=== PATIENT | female | born 1965 | race Caucasian/White ===

== ENCOUNTER 2018-09-12 10:24 | Outpatient (RCR) | payer BC, SELFPAY ==
[2018-09-12 11:21] VITALS: BP 146/80; PULSE 91; TEMP 36; BMI 21.9
--- NOTE | 2018-09-12 12:01 | WC ---
Pt did not bring a medication list. manager strategy & account and Dr Spencer updated. Will request list from PCP.
--- NOTE | 2018-09-12 12:20 | HP.PCM_ITS ---
(1) Ulcer of right foot with fat layer exposed Status: Acute Current Visit: Yes Code(s): L97.512 - Non-pressure chronic ulcer of other part of right foot with fat layer exposed (2) Chronic ulcer of left foot with fat layer exposed Status: Chronic Current Visit: Yes Code(s): L97.522 - Non-pressure chronic ulcer of other part of left foot with fat layer exposed (3) Type 2 diabetes mellitus without complications Status: Acute Current Visit: Yes Code(s): E11.9 - Type 2 diabetes mellitus without complications (4) Chronic ulcer of right great toe with fat layer exposed Status: Chronic Current Visit: Yes Code(s): L97.512 - Non-pressure chronic ulcer of other part of right foot with fat layer exposed (5) Pain in right foot Status: Acute Current Visit: Yes Code(s): M79.671 - Pain in right foot (6) Pain in left foot Status: Acute Current Visit: Yes Code(s): M79.672 - Pain in left foot History of Present Illness Date of Service: 09/12/18 Chief Complaint: ulcer right great toe, right heel, and left heel. History of Wound: This 53-year-old diabetic female with other comorbidities was consulted to the wound healing center for ulcers to each heel as well as the right hallux. The patient is somewhat hard to understand and has scattered thoughts so gaining a history was somewhat difficult. She relates that she was in a drug-induced coma approximately 3 months ago, and when she woke up she had ulcers to each heel and her right hallux. She said she had been receiving dressing changes by her long-term facility that she was discharged to. She relates they have been doing dressing changes most recently with Mesalt. She currently denies noticing any purulence or drainage to the areas or extending or surrounding redness. Today she denies any feelings of nausea, vomiting, fever, chills. Past Medical History Past Medical History: Chronic Problems Chronic ulcer of left foot with fat layer exposed (Chronic) Chronic ulcer of right great toe with fat layer exposed (Chronic) Allergies/Adverse Reactions: Allergies tuna Allergy (Uncoded 09/12/18 12:00) Unknown Smoking Status: Never smoker Review of Systems Constitutional: Denies: Chills, Fever, Weight Change Cardiovascular: Denies: Chest Pain, Palpitations Respiratory: Denies: Cough, Shortness of Breath Gastrointestinal: Denies: Diarrhea, Nausea, Vomiting Skin: Reports: - - Ulcers to bilateral feet - Physical Exam Vital Signs Temp Pulse BP 96.8 F L 91 146/80 H 09/12/18 11:21 09/12/18 11:21 09/12/18 11:21 General: Alert, Oriented x3, Cooperative, No apparent distress Extremities: No cyanosis, Capillary Refill Less than 3 Seconds, No Calf Tenderness - Negative Subha and Acosta signs bilateral, Diminished Peripheral Pulses - DP and PT pulses faintly palpable bilateral, Edema - Very mild lower extremity Skin: Ulcer/ Wound - Ulcers to right hallux, right heel, and left heel with fat layer exposed. Measurements noted below. The bases of all of these are noted to be a mixture of devitalized subcutaneous tissue, adherent slough, fibrotic tissue, biofilm. Most fibrotic appearing ulcer is the right heel. There is no purulence, no malodor, no surrounding or extending cellulitis, no probing to bone, no tracking, and no undermining to any of the ulcer sites at this time. Wound Measurements and Assessment WC - Nurse 1 - General Ulcer Measurement Start: 09/12/18 11:21 Freq: Status: Active Protocol: Activity Type Activity Date Activity User E-Sign Co-Sign Detail Recorded Client Recorded Date Recorded By Document 09/12/18 11:21 [id number] 09/12/18 11:47 09/12/18 11:21 Wound Center Nurse 1 [Ulcer Assessment] #3 Left heel -Combined with other wound No -Current Size (cm) - Length 0.6 -Current Size (cm) - Width 1.1 -Current Size (cm) - Depth 0.2 -Total Square Cm 0.66 -Date of Last Picture (Recall this 09/12/18 field) -Photo Taken Yes -Epithelialization None Present -Tunneling No -Undermining/Tunneling No -Circular Undermining No -Exudate Amt Medium -Exudate Type Serosanguineous -Wound Margin Distinct, Outline Attached -Granulation Amt None Present (0 %) -Granulation Quality N/A -Slough/Fibrin Yes -Necrosis Amt Large (67-100%) -Necrotic Tissue Type Adherent Slough -Structure Exposed None/Limited to Skin Breakdown -Texture (Christin-wound Skin Appearance) Assessed, Friable -Moisture (Christin-wound Skin Appearance Assessed, ) Maceration -Color (Christin-wound Skin Appearance) Assessed,Palor -Temperature (Christin-wound Skin No Abnormality Appearance) (Pt Warm) -Tenderness on Palpation (Christin-wound Yes Skin Appearance) -Foul Odor after Cleansing No #2 Right heel -Combined with other wound No -Current Size (cm) - Length 2.7 -Current Size (cm) - Width 2.4 -Current Size (cm) - Depth 0.2 -Total Square Cm 6.48 -Date of Last Picture (Recall this 09/12/18 field) -Photo Taken Yes -Epithelialization None Present -Tunneling No -Undermining/Tunneling No -Circular Undermining No -Exudate Amt Medium -Exudate Type Serosanguineous -Wound Margin Distinct, Outline Attached -Granulation Amt None Present (0 %) -Granulation Quality N/A -Slough/Fibrin Yes -Necrosis Amt None Present (0 %) -Necrotic Tissue Type Adherent Slough -Structure Exposed None/Limited to Skin Breakdown -Texture (Christin-wound Skin Appearance) Assessed, Friable -Moisture (Christin-wound Skin Appearance Assessed, ) Maceration -Color (Christin-wound Skin Appearance) Assessed,Palor -Temperature (Christin-wound Skin No Abnormality Appearance) (Pt Warm) -Tenderness on Palpation (Christin-wound Yes Skin Appearance) -Foul Odor after Cleansing No -Anesthetic Used 5% Lidocaine Gel #1 Right great toe -Combined with other wound No -Current Size (cm) - Length 2.4 -Current Size (cm) - Width 2.5 -Current Size (cm) - Depth 0.1 -Total Square Cm 6.00 -Date of Last Picture (Recall this 09/12/18 field) -Photo Taken Yes -Epithelialization None Present -Undermining/Tunneling No -Circular Undermining No -Exudate Amt Medium -Exudate Type Serosanguineous -Wound Margin Distinct, Outline Attached -Granulation Amt None Present (0 %) -Granulation Quality N/A -Slough/Fibrin Yes -Necrosis Amt None Present (0 %) -Necrotic Tissue Type Adherent Slough -Structure Exposed None/Limited to Skin Breakdown -Texture (Christin-wound Skin Appearance) Assessed, Localized Edema -Moisture (Christin-wound Skin Appearance Assessed, ) Maceration -Color (Christin-wound Skin Appearance) Assessed,Palor -Temperature (Christin-wound Skin No Abnormality Appearance) (Pt Warm) -Tenderness on Palpation (Christin-wound Yes Skin Appearance) -Foul Odor after Cleansing No -Anesthetic Used 5% Lidocaine Gel [Edema Assessment] -Right Calf (cm) 28.2 -Right Ankle (cm) 17.8 -Left Calf (cm) 31.5 -Left Ankle (cm) 19 WC - Nurse 2 - General Ulcer CM Notes Start: 09/12/18 11:21 Freq: Status: Active Protocol: Activity Type Activity Date Activity User E-Sign Co-Sign Detail Recorded Client Recorded Date Recorded By Document 09/12/18 12:01 [email or web address] [id number] 09/12/18 12:16 AN 09/12/18 12:01 Wound Center Nurse 2 [Procedure/Treatment] #3 Left heel -Time 12:09 -Correct Patient Yes -Correct Side, Site, Position Yes -Correct Procedure Yes -Procedure Performed Yes -Type of Procedure Debridement -Clinical Debridement Subcutaneous -Post Debridement Size (cm) - Length 0.5 -Post Debridement Size (cm) - Width 1.2 -Post Debridement Size (cm) - Depth 0.2 -Total Square Cm 0.60 -Wound/Ulcer Outcome Not Healed -Ulcer Cleansing Rinsed/ Irrigated with Saline -Foul Odor after Cleansing No -Bioengineered Tissue No -Bleeding Controlled with Pressure -Treatment Response Procedure Tolerated Well #2 Right heel -Time 12:10 -Correct Patient Yes -Correct Side, Site, Position Yes -Correct Procedure Yes -Procedure Performed Yes -Type of Procedure Debridement -Clinical Debridement Subcutaneous -Post Debridement Size (cm) - Length 2.4 -Post Debridement Size (cm) - Width 2.4 -Post Debridement Size (cm) - Depth 0.4 -Total Square Cm 5.76 -Wound/Ulcer Outcome Not Healed -Ulcer Cleansing Rinsed/ Irrigated with Saline -Foul Odor after Cleansing No -Bioengineered Tissue No -Bleeding Controlled with Pressure -Offloading No -Treatment Response Procedure Tolerated Well #1 Right great toe -Time 12:10 -Correct Patient Yes -Correct Side, Site, Position Yes -Correct Procedure Yes -Procedure Performed Yes -Type of Procedure Debridement -Clinical Debridement Subcutaneous -Post Debridement Size (cm) - Length 2.5 -Post Debridement Size (cm) - Width 2.5 -Post Debridement Size (cm) - Depth 0.2 -Total Square Cm 6.25 -Wound/Ulcer Outcome Not Healed -Ulcer Cleansing Rinsed/ Irrigated with Saline -Foul Odor after Cleansing No -Bioengineered Tissue No -Bleeding Controlled with Pressure -Offloading No -Treatment Response Procedure Tolerated Well [See Physician Procedure note for Specifics] Pain Scale: 0-10 Numeric [Pain] -Is Patient Pain Free? Yes Musculoskeletal: Tenderness - With manipulation of ulcer sites Neurological: Sensory exam intact to light touch and pain Psych/Mental Status: Normal Affect, Appropriate Debridement Note Post-Debridement Measurements/Treatment WC - Nurse 2 - General Ulcer CM Notes Start: 09/12/18 11:21 Freq: Status: Active Protocol: Activity Type Activity Date Activity User E-Sign Co-Sign Detail Recorded Client Recorded Date Recorded By Document 09/12/18 12:01 AN [id number] 09/12/18 12:16 AN 09/12/18 12:01 Wound Center Nurse 2 #3 Left heel -Time 12:09 -Correct Patient Yes -Correct Side, Site, Position Yes -Correct Procedure Yes -Procedure Performed Yes -Type of Procedure Debridement -Clinical Debridement Subcutaneous -Post Debridement Size (cm) - Length 0.5 -Post Debridement Size (cm) - Width 1.2 -Post Debridement Size (cm) - Depth 0.2 -Total Square Cm 0.60 -Wound/Ulcer Outcome Not Healed -Ulcer Cleansing Rinsed/ Irrigated with Saline -Foul Odor after Cleansing No -Bioengineered Tissue No -Bleeding Controlled with Pressure -Treatment Response Procedure Tolerated Well #2 Right heel -Time 12:10 -Correct Patient Yes -Correct Side, Site, Position Yes -Correct Procedure Yes -Procedure Performed Yes -Type of Procedure Debridement -Clinical Debridement Subcutaneous -Post Debridement Size (cm) - Length 2.4 -Post Debridement Size (cm) - Width 2.4 -Post Debridement Size (cm) - Depth 0.4 -Total Square Cm 5.76 -Wound/Ulcer Outcome Not Healed -Ulcer Cleansing Rinsed/ Irrigated with Saline -Foul Odor after Cleansing No -Bioengineered Tissue No -Bleeding Controlled with Pressure -Offloading No -Treatment Response Procedure Tolerated Well #1 Right great toe -Time 12:10 -Correct Patient Yes -Correct Side, Site, Position Yes -Correct Procedure Yes -Procedure Performed Yes -Type of Procedure Debridement -Clinical Debridement Subcutaneous -Post Debridement Size (cm) - Length 2.5 -Post Debridement Size (cm) - Width 2.5 -Post Debridement Size (cm) - Depth 0.2 -Total Square Cm 6.25 -Wound/Ulcer Outcome Not Healed -Ulcer Cleansing Rinsed/ Irrigated with Saline -Foul Odor after Cleansing No -Bioengineered Tissue No -Bleeding Controlled with Pressure -Offloading No -Treatment Response Procedure Tolerated Well Pain Scale: 0-10 Numeric Is Patient Pain Free? Yes Wound debrided: Right posterior heel Laterality: Right Type of Debridement: Selective debridement Anesthesia Used: 5% Lidocaine Gel Depth: in the subcutaneous layer Percentage of wound debrided: 100 Instrument Used: 7mm curette Tissue Removed: Devitalized subcutaneous tissue, fibrotic tissue, adherent slough, biofilm Severity: Fat Layer Exposed Amount of bleeding with debridement: Mild Bleeding Controlled with: Pressure Patient tolerated procedure well - Additional Wound Wound debrided: Left posterior heel Laterality: Left Type of Debridement: Selective debridement Anesthesia Used: 5% Lidocaine Gel Depth: in the subcutaneous layer Percentage of wound debrided: 100 Instrument Used: 7mm curette Tissue Removed: Devitalized subcutaneous tissue, fibrotic tissue, adherent slough, biofilm - Additional Wound Wound debrided: Right hallux Laterality: Right Type of Debridement: Selective debridement Anesthesia Used: 5% Lidocaine Gel Depth: in the subcutaneous layer Percentage of wound debrided: 100 Instrument Used: 7mm curette Tissue Removed: Devitalized subcutaneous tissue, fibrotic tissue, adherent slough, biofilm Severity: Fat Layer Exposed Amount of bleeding with debridement: Mild Bleeding Controlled with: Pressure Patient tolerated procedure: Patient tolerated procedure well Assessment/Plan Active Problems Ulcer of right foot with fat layer exposed (Acute) Chronic ulcer of left foot with fat layer exposed (Chronic) Type 2 diabetes mellitus without complications (Acute) Chronic ulcer of right great toe with fat layer exposed (Chronic) Pain in right foot (Acute) Pain in left foot (Acute) Assessment: As noted above Plan: This patient was seen as a courtesy visit after missing her appointment 2 days ago. Initial patient examination and evaluation was performed. A very mild selective debridement was performed as noted in the clinical panel. Once complete, each of the ulcer sites was dressed with Santyl to the base followed by dry sterile dressing. The importance of keeping each of the ulcer sites offloaded at all times was stressed in great detail with the patient today. We discussed proper footwear that will completely offload the site if the patient has to be up and moving. We also discussed the importance of having her heels and toes completely offloaded and floated over the edges of pillows so nothing is touching them but air. Currently there are no nuchal signs of local inf ection so no wound cultures or antibiotics were prescribed. LEAS and venous duplex exams ordered for this patient and we will continue to monitor for these results. A prescription for Santyl was dispensed to the patient today. I recommend nutritional supplementation with a high protein diet in order to help optimize ulcer healing potential. The patient was educated on all signs and symptoms of local and systemic infection, and she was instructed to go to the emergency room immediately should she notice any of these. All questions were answered to the patient's satisfaction. She will follow back up in clinic with a different provider next week with whom she was originally scheduled with. She is to follow back up sooner if needed before then.
== END 2018-09-18 23:59 ==
LOC: WC 10:24
PROVIDERS: Family Provider Preventive Medicine Occupational Medicine; PCP Preventive Medicine Occupational Medicine; Visit Provider Nurse Practitioner Family
DX: E11.621 Type 2 diabetes mellitus with foot ulcer (principal); L97.512 Non-pressure chronic ulcer of other part of right foot with fat layer exposed; L97.422 Non-pressure chronic ulcer of left heel and midfoot with fat layer exposed; L97.412 Non-pressure chronic ulcer of right heel and midfoot with fat layer exposed
CPT/HCPCS: 99202; G0463

== ENCOUNTER 2018-10-15 15:15 | Outpatient (RCR) | payer MEDICARE, MEDICAID, SELFPAY ==
[2018-09-19 01:16] VITALS: BP 146/80; PULSE 91; TEMP 36
[2018-09-19 10:22] VITALS: BP 156/97; PULSE 115; RESP 18; TEMP 36.2; BMI 21.9
--- NOTE | 2018-09-19 11:55 | PCM.WC.PN ---
(1) Ulcer of right foot with fat layer exposed Status: Acute Current Visit: No Code(s): L97.512 - Non-pressure chronic ulcer of other part of right foot with fat layer exposed (2) Chronic ulcer of left foot with fat layer exposed Status: Chronic Current Visit: No Code(s): L97.522 - Non-pressure chronic ulcer of other part of left foot with fat layer exposed (3) Type 2 diabetes mellitus without complications Status: Acute Current Visit: No Code(s): E11.9 - Type 2 diabetes mellitus without complications (4) Chronic ulcer of right great toe with fat layer exposed Status: Chronic Current Visit: No Code(s): L97.512 - Non-pressure chronic ulcer of other part of right foot with fat layer exposed (5) Pain in right foot Status: Acute Current Visit: No Code(s): M79.671 - Pain in right foot (6) Pain in left foot Status: Acute Current Visit: No Code(s): M79.672 - Pain in left foot Type of Wound Date of Service: 09/19/18 Chief Complaint: ulcer right great toe, right heel, and left heel. History of Wound: This 53-year-old diabetic female with other comorbidities was consulted to the wound healing center for ulcers to each heel as well as the right hallux. The patient is somewhat hard to understand and has scattered thoughts so gaining a history was somewhat difficult. She relates that she was in a drug-induced coma approximately 3 months ago, and when she woke up she had ulcers to each heel and her right hallux. She said she had been receiving dressing changes by her [facility] facility that she was discharged to. She relates they have been doing dressing changes most recently with Mesalt. She currently denies noticing any purulence or drainage to the areas or extending or surrounding redness. Today she denies any feelings of nausea, vomiting, fever, chills. Progress of Wound: Slight improvement in appearance of each ulcer site this week. - Physical Exam Vital Signs Temp Pulse Resp BP 97.1 F L 115 H 18 156/97 H 09/19/18 10:22 09/19/18 10:22 09/19/18 10:22 09/19/18 10:22 General: Alert, Oriented x3, Cooperative, No apparent distress Extremities: No cyanosis, Capillary Refill Less than 3 Seconds, No Calf Tenderness - Negative Subha and Acosta signs bilateral, Diminished Peripheral Pulses - DP pulses and PT pulses faintly palpable bilateral, Edema - Mild lower extremity edema Skin: Ulcer/ Wound - Ulcers to right hallux, right heel, and left heel with fat layer exposed. Measurements noted below. The bases of all of these are noted to be a mixture of devitalized subcutaneous tissue, adherent slough, fibrotic tissue, biofilm. Most fibrotic appearing ulcer is the right heel. There is no purulence, no malodor, no surrounding or extending cellulitis, no probing to bone, no tracking, and no undermining to any of the ulcer sites at this time. Wound Measurements and Assessment WC - Nurse 1 - General Ulcer Measurement Start: 09/19/18 10:22 Freq: Status: Active Protocol: Activity Type Activity Date Activity User E-Sign Co-Sign Detail Recorded Client Recorded Date Recorded By Document 09/19/18 10:22 [id number] 09/19/18 10:46 09/19/18 10:22 Wound Center Nurse 1 [Ulcer Assessment] #3 Left heel -Combined with other wound No -Current Size (cm) - Length 1 -Current Size (cm) - Width 0.5 -Current Size (cm) - Depth 0.2 -Total Square Cm 0.5 -Photo Taken No -Epithelialization None Present -Tunneling No -Undermining/Tunneling No -Circular Undermining No -Exudate Amt Small -Exudate Type Serosanguineous -Wound Margin Distinct, Outline Attached -Granulation Amt None Present (0 %) -Granulation Quality N/A -Slough/Fibrin Yes -Necrosis Amt Medium (34-66%) -Necrotic Tissue Type Adherent Slough -Structure Exposed None/Limited to Skin Breakdown -Texture (Christin-wound Skin Appearance) Assessed -Moisture (Christin-wound Skin Appearance Assessed, ) Maceration -Color (Christin-wound Skin Appearance) Assessed,Palor -Temperature (Christin-wound Skin No Abnormality Appearance) (Pt Warm) -Tenderness on Palpation (Christin-wound No Skin Appearance) -Foul Odor after Cleansing No -Anesthetic Used 5% Lidocaine Gel #2 Right heel -Combined with other wound No -Current Size (cm) - Length 3.4 -Current Size (cm) - Width 1.2 -Current Size (cm) - Depth 0.1 -Total Square Cm 4.08 -Photo Taken No -Epithelialization None Present -Tunneling No -Undermining/Tunneling No -Circular Undermining No -Exudate Amt Medium -Exudate Type Serosanguineous -Wound Margin Distinct, Outline Attached -Granulation Amt None Present (0 %) -Granulation Quality N/A -Slough/Fibrin Yes -Necrosis Amt Medium (34-66%) -Necrotic Tissue Type Adherent Slough -Structure Exposed None/Limited to Skin Breakdown -Texture (Christin-wound Skin Appearance) Assessed -Moisture (Christin-wound Skin Appearance Assessed, ) Maceration -Color (Christin-wound Skin Appearance) Palor -Temperature (Christin-wound Skin No Abnormality Appearance) (Pt Warm) -Tenderness on Palpation (Christin-wound No Skin Appearance) -Foul Odor after Cleansing No -Anesthetic Used 5% Lidocaine Gel #1 Right great toe -Combined with other wound No -Current Size (cm) - Length 1.9 -Current Size (cm) - Width 2.8 -Current Size (cm) - Depth 0.2 -Total Square Cm 5.32 -Photo Taken No -Epithelialization None Present -Tunneling No -Undermining/Tunneling No -Circular Undermining No -Exudate Amt Medium -Exudate Type Serosanguineous -Wound Margin Distinct, Outline Attached -Granulation Amt None Present (0 %) -Granulation Quality N/A -Slough/Fibrin Yes -Necrosis Amt Medium (34-66%) -Necrotic Tissue Type Adherent Slough -Structure Exposed None/Limited to Skin Breakdown -Texture (Christin-wound Skin Appearance) Assessed -Moisture (Christin-wound Skin Appearance Assessed, ) Maceration -Color (Christin-wound Skin Appearance) Assessed,Palor -Temperature (Christin-wound Skin No Abnormality Appearance) (Pt Warm) -Tenderness on Palpation (Christin-wound No Skin Appearance) -Foul Odor after Cleansing No -Anesthetic Used 5% Lidocaine Gel [Edema Assessment] -Lower Limb Edema Present No WC - Nurse 2 - General Ulcer CM Notes Start: 09/19/18 10:22 Freq: Status: Active Protocol: Activity Type Activity Date Activity User E-Sign Co-Sign Detail Recorded Client Recorded Date Recorded By Document 09/19/18 10:59 AN [id number] 09/19/18 11:02 AN 09/19/18 10:59 Wound Center Nurse 2 [Procedure/Treatment] #3 Left heel -Time 11:01 -Correct Patient Yes -Correct Side, Site, Position Yes -Correct Procedure Yes -Procedure Performed Yes -Type of Procedure Debridement -Clinical Debridement Selective -Post Debridement Size (cm) - Length 0.5 -Post Debridement Size (cm) - Width 1.1 -Post Debridement Size (cm) - Depth 0.2 -Total Square Cm 0.55 -Wound/Ulcer Outcome Not Healed -Bleeding Controlled with Pressure -Offloading No -Treatment Response Procedure Tolerated Well #2 Right heel -Time 11:01 -Correct Patient Yes -Correct Side, Site, Position Yes -Correct Procedure Yes -Procedure Performed Yes -Type of Procedure Debridement -Clinical Debridement Selective -Post Debridement Size (cm) - Length 2.2 -Post Debridement Size (cm) - Width 2.1 -Post Debridement Size (cm) - Depth 0.3 -Total Square Cm 4.62 -Wound/Ulcer Outcome Not Healed -Ulcer Cleansing Rinsed/ Irrigated with Saline -Foul Odor after Cleansing No -Bioengineered Tissue No -Bleeding Controlled with Pressure -Offloading No -Treatment Response Procedure Tolerated Well #1 Right great toe -Time 11:02 -Correct Patient Yes -Correct Side, Site, Position Yes -Correct Procedure Yes -Procedure Performed Yes -Type of Procedure Debridement -Clinical Debridement Selective -Post Debridement Size (cm) - Length 2.5 -Post Debridement Size (cm) - Width 2.5 -Post Debridement Size (cm) - Depth 0.2 -Total Square Cm 6.25 -Wound/Ulcer Outcome Not Healed -Ulcer Cleansing Rinsed/ Irrigated with Saline -Foul Odor after Cleansing No -Bioengineered Tissue No -Bleeding Controlled with Pressure -Offloading No -Treatment Response Procedure Tolerated Well [See Physician Procedure note for Specifics] Pain Scale: 0-10 Numeric [Pain] -Is Patient Pain Free? Yes Musculoskeletal: Tenderness - With manipulation of ulcer sites Neurological: Sensory exam intact to light touch and pain Psych/Mental Status: Normal Affect, Appropriate Debridement Note Post-Debridement Measurements/Treatment WC - Nurse 2 - General Ulcer CM Notes Start: 09/19/18 10:22 Freq: Status: Active Protocol: Activity Type Activity Date Activity User E-Sign Co-Sign Detail Recorded Client Recorded Date Recorded By Document 09/19/18 10:59 AN [id number] 09/19/18 11:02 AN 09/19/18 10:59 Wound Center Nurse 2 #3 Left heel -Time 11:01 -Correct Patient Yes -Correct Side, Site, Position Yes -Correct Procedure Yes -Procedure Performed Yes -Type of Procedure Debridement -Clinical Debridement Selective -Post Debridement Size (cm) - Length 0.5 -Post Debridement Size (cm) - Width 1.1 -Post Debridement Size (cm) - Depth 0.2 -Total Square Cm 0.55 -Wound/Ulcer Outcome Not Healed -Bleeding Controlled with Pressure -Offloading No -Treatment Response Procedure Tolerated Well #2 Right heel -Time 11:01 -Correct Patient Yes -Correct Side, Site, Position Yes -Correct Procedure Yes -Procedure Performed Yes -Type of Procedure Debridement -Clinical Debridement Selective -Post Debridement Size (cm) - Length 2.2 -Post Debridement Size (cm) - Width 2.1 -Post Debridement Size (cm) - Depth 0.3 -Total Square Cm 4.62 -Wound/Ulcer Outcome Not Healed -Ulcer Cleansing Rinsed/ Irrigated with Saline -Foul Odor after Cleansing No -Bioengineered Tissue No -Bleeding Controlled with Pressure -Offloading No -Treatment Response Procedure Tolerated Well #1 Right great toe -Time 11:02 -Correct Patient Yes -Correct Side, Site, Position Yes -Correct Procedure Yes -Procedure Performed Yes -Type of Procedure Debridement -Clinical Debridement Selective -Post Debridement Size (cm) - Length 2.5 -Post Debridement Size (cm) - Width 2.5 -Post Debridement Size (cm) - Depth 0.2 -Total Square Cm 6.25 -Wound/Ulcer Outcome Not Healed -Ulcer Cleansing Rinsed/ Irrigated with Saline -Foul Odor after Cleansing No -Bioengineered Tissue No -Bleeding Controlled with Pressure -Offloading No -Treatment Response Procedure Tolerated Well Pain Scale: 0-10 Numeric Is Patient Pain Free? Yes Wound debrided: Right posterior heel Laterality: Right Type of Debridement: Selective debridement Anesthesia Used: 5% Lidocaine Gel Depth: in the subcutaneous layer Percentage of wound debrided: 100 Instrument Used: 5mm curette Tissue Removed: Devitalized subcutaneous tissue, fibrotic tissue, adherent slough, biofilm Severity: Fat Layer Exposed Amount of bleeding with debridement: Mild Bleeding Controlled with: Pressure Patient tolerated procedure well - Additional Wound Wound debrided: Left posterior heel Laterality: Left Type of Debridement: Selective debridement Anesthesia Used: 5% Lidocaine Gel Depth: in the subcutaneous layer Percentage of wound debrided: 100 Instrument Used: 5mm curette Tissue Removed: Devitalized subcutaneous tissue, fibrotic tissue, adherent slough, biofilm Severity: Fat Layer Exposed Amount of bleeding with debridement: Mild Bleeding Controlled with: Pressure Patient tolerated procedure: Patient tolerated procedure well - Additional Wound Wound debrided: Right hallux Laterality: Right Type of Debridement: Selective debridement Anesthesia Used: 5% Lidocaine Gel Depth: in the subcutaneous layer Percentage of wound debrided: 100 Instrument Used: 5mm curette Tissue Removed: Devitalized subcutaneous tissue, fibrotic tissue, adherent slough, biofilm Severity: Fat Layer Exposed Amount of bleeding with debridement: Mild Bleeding Controlled with: Pressure Patient tolerated procedure: Patient tolerated procedure well Assessment/Plan Assessment: As noted above Plan: This patient was seen as a courtesy visit after missing her appointment on her initial visit and then having her provider on vacation this week. Patient was examined and evaluated again today. A very mild selective debridement was performed as noted in the clinical panel. Once complete, each of the ulcer sites were dressed with Santyl to the base followed by dry sterile dressing. She has been tolerating these dressing changes well each day. The importance of keeping each of the ulcer sites offloaded at all times was stressed in great detail with the patient today. We discussed proper footwear that will completely offload the site if the patient has to be up and moving. We also discussed the importance of having her heels and toes completely offloaded and floated over the edges of pillows so nothing is touching them but air again today. LEAS and venous duplex exams ordered for this patient and she will have them done this afternoon. We will continue to monitor for these results. I recommend nutritional supplementation with a high protein diet in order to help optimize ulcer healing potential. The patient was educated on all signs and symptoms of local and systemic infection, and she was instructed to go to the emergency room immediately should she notice any of these. All questions were answered to the patient's satisfaction. She will follow back up in clinic with a different provider next week. She is to follow back up sooner if needed before then.
[2018-10-01 15:25] VITALS: BP 141/87; PULSE 120; RESP 18; TEMP 536.2; TEMP 997.2; BMI 21.9
--- NOTE | 2018-10-01 17:11 | PCM.WC.PN ---
(1) Chronic ulcer of right great toe with fat layer exposed Status: Chronic Code(s): L97.512 - Non-pressure chronic ulcer of other part of right foot with fat layer exposed (2) Ulcer of right foot with fat layer exposed Status: Chronic Code(s): L97.512 - Non-pressure chronic ulcer of other part of right foot with fat layer exposed (3) Chronic ulcer of left foot with fat layer exposed Status: Chronic Code(s): L97.522 - Non-pressure chronic ulcer of other part of left foot with fat layer exposed (4) Type 2 diabetes mellitus Status: Chronic Code(s): E11.9 - Type 2 diabetes mellitus without complications Type of Wound Date of Service: 10/01/18 Chief Complaint: ulcer right great toe, right heel, and left heel. History of Wound: This 53-year-old diabetic female with other comorbidities was consulted to the wound healing center for ulcers to each heel as well as the right great toe. The patient is somewhat hard to understand and has scattered thoughts so gaining a history was somewhat difficult. She relates that she was in a drug-induced coma approximately 3 months ago, and when she woke up she had ulcers to each heel and her right great toe. She said she had been receiving dressing changes by her long term facility that she was discharged to. She relates they have been doing dressing changes most recently with [facility]. She currently denies noticing any purulence or drainage to the areas or extending or surrounding redness. Current wound care is Santyl daily. Today she denies any feelings of nausea, vomiting, fever, chills. Progress of Wound: Stable - Physical Exam Vital Signs Temp Pulse Resp BP 997.2 F H 120 H 18 141/87 H 10/01/18 15:25 10/01/18 15:25 10/01/18 15:25 10/01/18 15:25 General: Alert HEENT: Atraumatic Oral: Moist Mucosa Lungs: Normal air movement Cardiovascular: Regular Rhythm Extremities: Capillary Refill Less than 3 Seconds, Diminished Peripheral Pulses Skin: Ulcer/ Wound - Right great toe and bilateral heels. Wound Measurements and Assessment WC - Nurse 1 - General Ulcer Measurement Start: 09/19/18 10:22 Freq: Status: Active Protocol: Activity Type Activity Date Activity User E-Sign Co-Sign Detail Recorded Client Recorded Date Recorded By Document 10/01/18 15:25 DL [id number] 10/01/18 15:32 DL 10/01/18 15:25 Wound Center Nurse 1 [Ulcer Assessment] #3 Left heel -Current Size (cm) - Length 0.4 -Current Size (cm) - Width 0.6 -Current Size (cm) - Depth 0.2 -Total Square Cm 0.24 -Photo Taken No -Exudate Amt Small -Exudate Type Serosanguineous -Wound Margin Distinct, Outline Attached -Granulation Amt Medium (34-66%) -Granulation Quality Pale -Necrosis Amt Medium (34-66%) -Necrotic Tissue Type Adherent Slough -Structure Exposed N/A -Texture (Christin-wound Skin Appearance) Callus,Scarring -Moisture (Christin-wound Skin Appearance Dry/Scaly ) -Color (Christin-wound Skin Appearance) No Abnormality -Temperature (Christin-wound Skin No Abnormality Appearance) (Pt Warm) -Tenderness on Palpation (Christin-wound No Skin Appearance) -Ulcer Cleansing Rinsed/ Irrigated with Saline -Foul Odor after Cleansing No -Anesthetic Used 5% Lidocaine Gel #2 Right heel -Current Size (cm) - Length 1.8 -Current Size (cm) - Width 1.5 -Current Size (cm) - Depth 0.1 -Total Square Cm 2.70 -Photo Taken No -Exudate Amt Small -Exudate Type Serosanguineous -Wound Margin Distinct, Outline Attached -Granulation Amt Medium (34-66%) -Granulation Quality [place] -Necrosis Amt Medium (34-66%) -Necrotic Tissue Type Adherent Slough -Structure Exposed N/A -Texture (Christin-wound Skin Appearance) Callus,Scarring -Moisture (Christin-wound Skin Appearance Dry/Scaly ) -Color (Christin-wound Skin Appearance) No Abnormality -Temperature (Christin-wound Skin No Abnormality Appearance) (Pt Warm) -Tenderness on Palpation (Christin-wound No Skin Appearance) -Ulcer Cleansing Rinsed/ Irrigated with Saline -Foul Odor after Cleansing No -Anesthetic Used 5% Lidocaine Gel #1 Right great toe -Current Size (cm) - Length 0.6 -Current Size (cm) - Width 2.6 -Current Size (cm) - Depth 0.1 -Total Square Cm 1.56 -Photo Taken No -Exudate Amt Small -Exudate Type Serosanguineous -Wound Margin Distinct, Outline Attached -Granulation Amt Medium (34-66%) -Granulation Quality [place] -Necrosis Amt Medium (34-66%) -Necrotic Tissue Type Adherent Slough -Structure Exposed N/A -Texture (Christin-wound Skin Appearance) Scarring -Moisture (Chritsin-wound Skin Appearance Dry/Scaly ) -Color (Christin-wound Skin Appearance) No Abnormality -Temperature (Christin-wound Skin No Abnormality Appearance) (Pt Warm) -Tenderness on Palpation (Christin-wound No Skin Appearance) -Ulcer Cleansing Rinsed/ Irrigated with Saline -Foul Odor after Cleansing No -Anesthetic Used 5% Lidocaine Gel WC - Nurse 2 - General Ulcer CM Notes Start: 09/19/18 10:22 Freq: Status: Active Protocol: Activity Type Activity Date Activity User E-Sign Co-Sign Detail Recorded Client Recorded Date Recorded By Document 10/01/18 16:20 KAIA [id number] 10/01/18 16:27 KAIA 10/01/18 16:20 Wound Center Nurse 2 [Procedure/Treatment] #3 Left heel -Time 16:23 -Correct Patient Yes -Correct Side, Site, Position Yes -Correct Procedure Yes -Procedure Performed Yes -Type of Procedure Debridement -Clinical Debridement Subcutaneous -Post Debridement Size (cm) - Length 0.6 -Post Debridement Size (cm) - Width 0.9 -Post Debridement Size (cm) - Depth 0.4 -Total Square Cm 0.54 -Wound/Ulcer Outcome Not Healed -Ulcer Cleansing Rinsed/ Irrigated with Saline -Foul Odor after Cleansing No -Bioengineered Tissue No -Bleeding Controlled with Pressure -Offloading No -Treatment Response Procedure Tolerated Well #2 Right heel -Time 16:23 -Correct Patient Yes -Correct Side, Site, Position Yes -Correct Procedure Yes -Procedure Performed Yes -Type of Procedure Debridement -Clinical Debridement Subcutaneous -Post Debridement Size (cm) - Length 2.0 -Post Debridement Size (cm) - Width 1.7 -Post Debridement Size (cm) - Depth 0.3 -Total Square Cm 3.40 -Wound/Ulcer Outcome Not Healed -Ulcer Cleansing Rinsed/ Irrigated with Saline -Foul Odor after Cleansing No -Bioengineered Tissue No -Bleeding Controlled with Pressure -Offloading No -Treatment Response Procedure Tolerated Well #1 Right great toe -Time 16:20 -Correct Patient Yes -Correct Side, Site, Position Yes -Correct Procedure Yes -Procedure Performed Yes -Type of Procedure Debridement -Clinical Debridement Subcutaneous -Post Debridement Size (cm) - Length 2.7 -Post Debridement Size (cm) - Width 0.7 -Post Debridement Size (cm) - Depth 0.2 -Total Square Cm 1.89 -Wound/Ulcer Outcome Not Healed -Ulcer Cleansing Rinsed/ Irrigated with Saline -Foul Odor after Cleansing No -Bioengineered Tissue No -Bleeding Controlled with Pressure -Offloading No -Treatment Response Procedure Tolerated Well [See Physician Procedure note for Specifics] Musculoskeletal: No Tenderness to Palpation of Joints or Extremities Neurological: Neuro grossly intact Psych/Mental Status: Normal Affect Debridement Note Post-Debridement Measurements/Treatment WC - Nurse 2 - General Ulcer CM Notes Start: 09/19/18 10:22 Freq: Status: Active Protocol: Activity Type Activity Date Activity User E-Sign Co-Sign Detail Recorded Client Recorded Date Recorded By Document 09/19/18 10:59 AN [id number] 09/19/18 11:02 AN Document 10/01/18 16:20 [id number] 10/01/18 16:27 09/19/18 10/01/18 10:59 16:20 Wound Center Nurse 2 #3 Left heel -Time 11:01 16:23 -Correct Patient Yes Yes -Correct Side, Site, Position Yes Yes -Correct Procedure Yes Yes -Procedure Performed Yes Yes -Type of Procedure Debridement Debridement -Clinical Debridement Selective Subcutaneous -Post Debridement Size (cm) - Length 0.5 0.6 -Post Debridement Size (cm) - Width 1.1 0.9 -Post Debridement Size (cm) - Depth 0.2 0.4 -Total Square Cm 0.55 0.54 -Wound/Ulcer Outcome Not Healed Not Healed -Ulcer Cleansing Rinsed/ Irrigated with Saline -Foul Odor after Cleansing No -Bioengineered Tissue No -Bleeding Controlled with Pressure Pressure -Offloading No No -Treatment Response Procedure Procedure Tolerated Well Tolerated Well #2 Right heel -Time 11:01 16:23 -Correct Patient Yes Yes -Correct Side, Site, Position Yes Yes -Correct Procedure Yes Yes -Procedure Performed Yes Yes -Type of Procedure Debridement Debridement -Clinical Debridement Selective Subcutaneous -Post Debridement Size (cm) - Length 2.2 2.0 -Post Debridement Size (cm) - Width 2.1 1.7 -Post Debridement Size (cm) - Depth 0.3 0.3 -Total Square Cm 4.62 3.40 -Wound/Ulcer Outcome Not Healed Not Healed -Ulcer Cleansing Rinsed/ Rinsed/ Irrigated with Irrigated with Saline Saline -Foul Odor after Cleansing No No -Bioengineered Tissue No No -Bleeding Controlled with Pressure Pressure -Offloading No No -Treatment Response Procedure Procedure Tolerated Well Tolerated Well #1 Right great toe -Time 11:02 16:20 -Correct Patient Yes Yes -Correct Side, Site, Position Yes Yes -Correct Procedure Yes Yes -Procedure Performed Yes Yes -Type of Procedure Debridement Debridement -Clinical Debridement Selective Subcutaneous -Post Debridement Size (cm) - Length 2.5 2.7 -Post Debridement Size (cm) - Width 2.5 0.7 -Post Debridement Size (cm) - Depth 0.2 0.2 -Total Square Cm 6.25 1.89 -Wound/Ulcer Outcome Not Healed Not Healed -Ulcer Cleansing Rinsed/ Rinsed/ Irrigated with Irrigated with Saline Saline -Foul Odor after Cleansing No No -Bioengineered Tissue No No -Bleeding Controlled with Pressure Pressure -Offloading No No -Treatment Response Procedure Procedure Tolerated Well Tolerated Well Pain Scale: 0-10 Numeric Is Patient Pain Free? Yes Wound debrided: Right great toe Type of Debridement: Excisional debridement Anesthesia Used: 4% Lidocaine Solution, 5% Lidocaine Gel Depth: Down to and including healthy tissue, in the subcutaneous layer Percentage of wound debrided: 100 Instrument Used: 3mm curette Tissue Removed: subcutaneous tissue and slough Severity: Fat Layer Exposed Amount of bleeding with debridement: Mild Bleeding Controlled with: Pressure, Compression and gauze Patient tolerated procedure well - Additional Wound Wound debrided: Right heel Laterality: Right Type of Debridement: Excisional debridement Anesthesia Used: 4% Lidocaine Solution, 5% Lidocaine Gel Depth: Down to and including healthy tissue, in the subcutaneous layer Percentage of wound debrided: 100 Instrument Used: 7mm curette Tissue Removed: Subcutaneous tissue and slough Severity: Limited To Skin Breakdown Amount of bleeding with debridement: Mild Bleeding Controlled with: Compression and gauze Patient tolerated procedure: Patient tolerated procedure well - Additional Wound Wound debrided: Left heel Laterality: Left Type of Debridement: Excisional debridement Anesthesia Used: 4% Lidocaine Solution, 5% Lidocaine Gel Depth: Down to and including healthy tissue, in the subcutaneous layer Percentage of wound debrided: 100 Instrument Used: 7mm curette Tissue Removed: Subcutaneous tissue and slough Severity: Fat Layer Exposed Amount of bleeding with debridement: Mild Bleeding Controlled with: Pressure, Compression and gauze Patient tolerated procedure: Patient tolerated procedure well Assessment/Plan Assessment: 1. Chronic ulcer of right great toe. 2. Chronic ulcer of right heel. 3. Chronic ulcer of left heel. 4. Type 2 diabetes mellitus. Plan: This patient was seen as a courtesy visit after missing her appointment on her initial visit and then having her provider on vacation this week. Patient was examined and evaluated again today. A very mild selective debridement was performed as noted in the clinical panel. Once complete, each of the ulcer sites were dressed with Santyl to the base followed by dry sterile dressing. She has been tolerating these dressing changes well each day. The importance of keeping each of the ulcer sites offloaded at all times was stressed in great detail with the patient today. We discussed proper footwear that will completely offload the site if the patient has to be up and moving. We also discussed the importance of having her heels and toes completely offloaded and floated over the edges of pillows so nothing is touching them but air again today. LEAS and venous duplex exams ordered for this patient and she will have them done this afternoon. We will continue to monitor for these results. I recommend nutritional supplementation with a high protein diet in order to help optimize ulcer healing potential. The patient was educated on all signs and symptoms of local and systemic infection, and she was instructed to go to the emergency room immediately should she notice any of these. All questions were answered to the patient's satisfaction. She will follow back up in clinic with a different provider next week. She is to follow back up sooner if needed before then. Code Visit [id number]: [id number] Monica subq tissue 20 sq cm/<
--- NOTE | 2018-10-15 12:18 | VDLE_ITS ---
Reason For Study: Wound care RIGHT LEFT CFV is compressible, spontaneous, phasic, CFV is compressible, spontaneous, phasic, competent and demonstrates normal competent, and demonstrates normal augmentation. augmentation. FV is compressible, spontaneous, phasic, FV is compressible, spontaneous, phasic, competent and demonstrates normal competent and demonstrates normal augmentation. augmentation. POP V is compressible, spontaneous, phasic, POP V is compressible, spontaneous, phasic, competent and demonstrates normal competent and demonstrates normal augmentation. augmentation. T/P Trunk is compressible. T/P Trunk is compressible. PTV is compressible. PTV is compressible. RT PerV is compressible. LT PerV is compressible. SFJ is competent and measures 0.63 x 0.76 cm. SFJ is competent and measures 0.61 x 0.77 cm. GSV proximal thigh measures 0.32 x 0.38 cm. GSV proximal thigh measures 0.39 x 0.40 cm. GSV at knee measures 0.41 x 0.49 cm. GSV at knee measures 0.36 x 0.36 cm. GSV is competent throughout. GSV is competent throughout. SSV proximal calf is competent and measures SSV proximal calf is INCOMPETENT for greater 0.50 x 0.56 cm. than 0.5 seconds and measures 0.20 x 0.25 cm. Procedure Exam performed in department. A preliminary report was called and/or faxed to . Interpretation Summary Deep veins of the lower extremities are bilaterally patent and compressible segmentally. There is no evidence of deep vein thrombosis on either side. Valvular competence appears intact within the proximal deep venous systems bilaterally. The great saphenous veins appear bilaterally patent and compressible segmentally. Sapheno-femoral junctions are bilaterally competent . Valvular competence appears to be intact segmentally within the great saphenous veins bilaterally. The right small saphenous vein is patent and competent. The left small saphenous vein is patent and incompetent. Ordering Physician: Kaycee Bro Referring Physician: MD Ofelia Bo Performed By: Sylvia Hutton, T
--- NOTE | 2018-10-15 12:18 | ART_ITS ---
Reason For Study: Wound care Procedure A bilateral lower extremity continuous wave Doppler with analog waveform analysis,segmental pressures,and ankle brachial indexes without exercise. Left Segmental Pressures Left brachial= 123mmHg. Left posterior tibial artery = 125mmHg. Left dorsalis pedis artery = 93mmHg. Left digit = 91 mmHg. The left dorsalis pedis waveforms are triphasic. The left posterior tibial artery waveforms are triphasic. Right Segmental Pressures Right brachial= 123mmHg. Right thigh = 135mmHg. Right calf = 106mmHg. Right posterior tibial artery = 109mmHg. Right dorsalis pedis artery = 109mmHg. The right dorsalis pedis waveforms are triphasic. The right posterior tibial artery waveforms are triphasic. Indices The right ankle brachial index by the dorsalis pedis is 0.89. The right ankle brachial index by the posterior tibial artery is 0.89. The left ankle brachial index by the dorsalis pedis is 0.76. The left ankle brachial index by the posterior tibial artery is 1.02. The left digital-brachial index is 0.74. Interpretation Summary Triphasic Doppler waveforms are noted at ankle level bilaterally. Pulse-volume recordings appear satisfactory bilaterally. The resting right ankle-brachial index is low-normal. The resting left ankle-brachial index is normal. The right digital-brachial index was not determined due to the presence of a bandage. The left digital-brachial index is normal. 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 Arterial flow was not assessed at digital level on the right due to the presence of a bandage. Arterial flow appears normal at digital level on the left. Ordering Physician: Kaycee Bro Referring Physician: MD Bo Gilbert Performed By: Sylvia Hutton RVT
[2018-10-15 16:11] VITALS: BP 139/77; PULSE 101; RESP 18; TEMP 37.6; BMI 21.9
--- NOTE | 2018-10-15 17:19 | PCM.WC.PN ---
(1) Chronic ulcer of right great toe with fat layer exposed Status: Chronic Current Visit: Yes Code(s): L97.512 - Non-pressure chronic ulcer of other part of right foot with fat layer exposed (2) Ulcer of right foot with fat layer exposed Status: Chronic Current Visit: Yes Code(s): L97.512 - Non-pressure chronic ulcer of other part of right foot with fat layer exposed (3) Chronic ulcer of left foot with fat layer exposed Status: Chronic Current Visit: Yes Code(s): L97.522 - Non-pressure chronic ulcer of other part of left foot with fat layer exposed (4) Type 2 diabetes mellitus Status: Chronic Current Visit: Yes Code(s): E11.9 - Type 2 diabetes mellitus without complications Type of Wound Date of Service: 10/15/18 Chief Complaint: ulcer right great toe, right heel, and left heel. History of Wound: This 53-year-old diabetic female with other comorbidities was consulted to the wound healing center for ulcers to each heel as well as the right great toe. The patient is somewhat hard to understand and has scattered thoughts so gaining a history was somewhat difficult. She relates that she was in a drug-induced coma approximately 3 months ago, and when she woke up she had ulcers to each heel and her right great toe. She said she had been receiving dressing changes by her senior care facility that she was discharged to. She relates they have been doing dressing changes most recently with Mesalt. She currently denies noticing any purulence or drainage to the areas or extending or surrounding redness. Current wound care is Santyl daily. Today she denies any feelings of nausea, vomiting, fever, chills. Progress of Wound: Stable - Physical Exam Vital Signs Temp Pulse Resp BP 99.7 F H 101 H 18 139/77 H 10/15/18 16:11 10/15/18 16:11 10/15/18 16:11 10/15/18 16:11 General: Alert, Oriented x3, Cooperative HEENT: Atraumatic Oral: Moist Mucosa Lungs: Normal air movement Cardiovascular: Regular rate Extremities: Capillary Refill Less than 3 Seconds, Edema Skin: Ulcer/ Wound - Right great toe ulcer and bilateral heel ulcers Wound Measurements and Assessment WC - Nurse 1 - General Ulcer Measurement Start: 09/19/18 10:22 Freq: Status: Active Protocol: Activity Type Activity Date Activity User E-Sign Co-Sign Detail Recorded Client Recorded Date Recorded By Document 10/15/18 16:11 [id number] 10/15/18 16:28 10/15/18 16:11 Wound Center Nurse 1 [Ulcer Assessment] #3 Left heel -Combined with other wound No -Current Size (cm) - Length 0.4 -Current Size (cm) - Width 0.7 -Current Size (cm) - Depth 0.1 -Total Square Cm 0.28 -Photo Taken No -Epithelialization None Present -Tunneling No -Undermining/Tunneling No -Circular Undermining No -Classification - Molina Grading ( Grade 2 Diabetic Ulcer) -Change in Wound Grade/Stage No Query Text:If change please identify the Stage/Grade in the comment (ie. S2 G3) -Exudate Amt Small -Exudate Type Serosanguineous -Wound Margin Distinct, Outline Attached -Granulation Amt None Present (0 %) -Slough/Fibrin Yes -Necrosis Amt Small (1-33%) -Necrotic Tissue Type Adherent Slough -Structure Exposed None/Limited to Skin Breakdown -Texture (Christin-wound Skin Appearance) No Abnormality -Moisture (Christin-wound Skin Appearance No Abnormality, ) Assessed -Color (Christin-wound Skin Appearance) Assessed,Palor -Temperature (Christin-wound Skin Cool/Cold Appearance) -Tenderness on Palpation (Christin-wound No Skin Appearance) -Foul Odor after Cleansing No -Anesthetic Used 5% Lidocaine Gel #2 Right heel -Combined with other wound No -Current Size (cm) - Length 1.5 -Current Size (cm) - Width 1.3 -Current Size (cm) - Depth 0.1 -Total Square Cm 1.95 -Photo Taken No -Epithelialization None Present -Undermining/Tunneling No -Circular Undermining No -Classification - Molina Grading ( Grade 2 Diabetic Ulcer) -Change in Wound Grade/Stage No Query Text:If change please identify the Stage/Grade in the comment (ie. S2 G3) -Exudate Amt Small -Exudate Type Serosanguineous -Wound Margin Distinct, Outline Attached -Granulation Amt None Present (0 %) -Slough/Fibrin Yes -Necrosis Amt None Present (0 %) -Necrotic Tissue Type Adherent Slough -Structure Exposed None/Limited to Skin Breakdown -Moisture (Christin-wound Skin Appearance No Abnormality, ) Assessed -Color (Christin-wound Skin Appearance) Assessed,Palor -Temperature (Christin-wound Skin Cool/Cold Appearance) -Tenderness on Palpation (Christin-wound No Skin Appearance) -Foul Odor after Cleansing No -Anesthetic Used 5% Lidocaine Gel #1 Right great toe -Combined with other wound No -Current Size (cm) - Length 0.5 -Current Size (cm) - Width 0.3 -Current Size (cm) - Depth 0.1 -Total Square Cm 0.15 -Photo Taken No -Epithelialization None Present -Undermining/Tunneling No -Circular Undermining No -Classification - Molina Grading ( Grade 2 Diabetic Ulcer) -Exudate Amt None Present -Wound Margin Distinct, Outline Attached -Granulation Amt None Present (0 %) -Slough/Fibrin Yes -Necrosis Amt None Present (0 %) -Structure Exposed None/Limited to Skin Breakdown -Texture (Christin-wound Skin Appearance) No Abnormality, Assessed -Moisture (Christin-wound Skin Appearance No Abnormality, ) Assessed -Color (Christin-wound Skin Appearance) Assessed,Palor -Temperature (Christin-wound Skin Cool/Cold Appearance) -Foul Odor after Cleansing No -Anesthetic Used 5% Lidocaine Gel [Edema Assessment] -Lower Limb Edema Present No WC - Nurse 2 - General Ulcer CM Notes Start: 09/19/18 10:22 Freq: Status: Active Protocol: Activity Type Activity Date Activity User E-Sign Co-Sign Detail Recorded Client Recorded Date Recorded By Document 10/15/18 16:34 [email or web address] [id number] 10/15/18 16:39 KAIA 10/15/18 16:34 Wound Center Nurse 2 [Procedure/Treatment] #3 Left heel -Time 16:39 -Correct Patient Yes -Correct Side, Site, Position Yes -Correct Procedure Yes -Procedure Performed Yes -Type of Procedure Debridement -Clinical Debridement Subcutaneous -Post Debridement Size (cm) - Length 0.4 -Post Debridement Size (cm) - Width 0.7 -Post Debridement Size (cm) - Depth 0.4 -Total Square Cm 0.28 -Wound/Ulcer Outcome Not Healed -Ulcer Cleansing Rinsed/ Irrigated with Saline -Foul Odor after Cleansing No -Bioengineered Tissue No -Bleeding Controlled with Pressure -Offloading No -Treatment Response Procedure Tolerated Well #2 Right heel -Time 16:37 -Correct Patient Yes -Correct Side, Site, Position Yes -Correct Procedure Yes -Procedure Performed Yes -Type of Procedure Debridement -Clinical Debridement Subcutaneous -Post Debridement Size (cm) - Length 1.7 -Post Debridement Size (cm) - Width 1.4 -Post Debridement Size (cm) - Depth 0.2 -Total Square Cm 2.38 -Wound/Ulcer Outcome Not Healed -Ulcer Cleansing Rinsed/ Irrigated with Saline -Foul Odor after Cleansing No -Bioengineered Tissue No -Bleeding Controlled with Pressure -Offloading No -Treatment Response Procedure Tolerated Well #1 Right great toe -Time 16:34 -Correct Patient Yes -Correct Side, Site, Position Yes -Correct Procedure Yes -Procedure Performed Yes -Type of Procedure Debridement -Clinical Debridement Subcutaneous -Post Debridement Size (cm) - Length 2.8 -Post Debridement Size (cm) - Width 0.3 -Post Debridement Size (cm) - Depth 0.2 -Total Square Cm 0.84 -Wound/Ulcer Outcome Not Healed -Ulcer Cleansing Rinsed/ Irrigated with Saline -Foul Odor after Cleansing No -Bioengineered Tissue No -Bleeding Controlled with Pressure -Offloading No -Treatment Response Procedure Tolerated Well [See Physician Procedure note for Specifics] Pain Scale: 0-10 Numeric [Pain] -Is Patient Pain Free? Yes Musculoskeletal: No Tenderness to Palpation of Joints or Extremities Neurological: Neuro grossly intact Psych/Mental Status: Normal Affect, Appropriate Debridement Note Post-Debridement Measurements/Treatment WC - Nurse 2 - General Ulcer CM Notes Start: 09/19/18 10:22 Freq: Status: Active Protocol: Activity Type Activity Date Activity User E-Sign Co-Sign Detail Recorded Client Recorded Date Recorded By Document 09/19/18 10:59 AN [id number] 09/19/18 11:02 AN Document 10/01/18 16:20 [id number] 10/01/18 16:27 Document 10/15/18 16:34 [id number] 10/15/18 16:39 09/19/18 10/01/18 10/15/18 10:59 16:20 16:34 Wound Center Nurse 2 #3 Left heel -Time 11:01 16:23 16:39 -Correct Patient Yes Yes Yes -Correct Side, Site, Position Yes Yes Yes -Correct Procedure Yes Yes Yes -Procedure Performed Yes Yes Yes -Type of Procedure Debridement Debridement Debridement -Clinical Debridement Selective Subcutaneous Subcutaneous -Post Debridement Size (cm) - Length 0.5 0.6 0.4 -Post Debridement Size (cm) - Width 1.1 0.9 0.7 -Post Debridement Size (cm) - Depth 0.2 0.4 0.4 -Total Square Cm 0.55 0.54 0.28 -Wound/Ulcer Outcome Not Healed Not Healed Not Healed -Ulcer Cleansing Rinsed/ Rinsed/ Irrigated with Irrigated with Saline Saline -Foul Odor after Cleansing No No -Bioengineered Tissue No No -Bleeding Controlled with Pressure Pressure Pressure -Offloading No No No -Treatment Response Procedure Procedure Procedure Tolerated Well Tolerated Well Tolerated Well #2 Right heel -Time 11:01 16:23 16:37 -Correct Patient Yes Yes Yes -Correct Side, Site, Position Yes Yes Yes -Correct Procedure Yes Yes Yes -Procedure Performed Yes Yes Yes -Type of Procedure Debridement Debridement Debridement -Clinical Debridement Selective Subcutaneous Subcutaneous -Post Debridement Size (cm) - Length 2.2 2.0 1.7 -Post Debridement Size (cm) - Width 2.1 1.7 1.4 -Post Debridement Size (cm) - Depth 0.3 0.3 0.2 -Total Square Cm 4.62 3.40 2.38 -Wound/Ulcer Outcome Not Healed Not Healed Not Healed -Ulcer Cleansing Rinsed/ Rinsed/ Rinsed/ Irrigated with Irrigated with Irrigated with Saline Saline Saline -Foul Odor after Cleansing No No No -Bioengineered Tissue No No No -Bleeding Controlled with Pressure Pressure Pressure -Offloading No No No -Treatment Response Procedure Procedure Procedure Tolerated Well Tolerated Well Tolerated Well #1 Right great toe -Time 11:02 16:20 16:34 -Correct Patient Yes Yes Yes -Correct Side, Site, Position Yes Yes Yes -Correct Procedure Yes Yes Yes -Procedure Performed Yes Yes Yes -Type of Procedure Debridement Debridement Debridement -Clinical Debridement Selective Subcutaneous Subcutaneous -Post Debridement Size (cm) - Length 2.5 2.7 2.8 -Post Debridement Size (cm) - Width 2.5 0.7 0.3 -Post Debridement Size (cm) - Depth 0.2 0.2 0.2 -Total Square Cm 6.25 1.89 0.84 -Wound/Ulcer Outcome Not Healed Not Healed Not Healed -Ulcer Cleansing Rinsed/ Rinsed/ Rinsed/ Irrigated with Irrigated with Irrigated with Saline Saline Saline -Foul Odor after Cleansing No No No -Bioengineered Tissue No No No -Bleeding Controlled with Pressure Pressure Pressure -Offloading No No No -Treatment Response Procedure Procedure Procedure Tolerated Well Tolerated Well Tolerated Well Pain Scale: 0-10 Numeric Is Patient Pain Free? Yes Yes Wound debrided: Right great toe Laterality: Right Type of Debridement: Excisional debridement Anesthesia Used: 4% Lidocaine Solution Depth: Down to and including healthy tissue, in the subcutaneous layer Percentage of wound debrided: 100 Instrument Used: 3mm curette Tissue Removed: Subcutaneous tissue and slough Severity: Fat Layer Exposed Amount of bleeding with debridement: Mild Bleeding Controlled with: Pressure, Compression and gauze Patient tolerated procedure well - Additional Wound Wound debrided: Right heel Laterality: Right Type of Debridement: Excisional debridement Anesthesia Used: 4% Lidocaine Solution, 5% Lidocaine Gel Depth: Down to and including healthy tissue, in the subcutaneous layer Percentage of wound debrided: 100 Instrument Used: 3mm curette Tissue Removed: Subcutaneous tissue and slough Severity: Fat Layer Exposed Amount of bleeding with debridement: Mild Bleeding Controlled with: Pressure, Compression and gauze Patient tolerated procedure: Patient tolerated procedure well - Additional Wound Wound debrided: Left heel Laterality: Left Type of Debridement: Excisional debridement Anesthesia Used: 4% Lidocaine Solution, 5% Lidocaine Gel Depth: Down to and including healthy tissue, in the subcutaneous layer Percentage of wound debrided: 100 Instrument Used: 3mm curette Tissue Removed: Subcutaneous tissue and slough Severity: Fat Layer Exposed Amount of bleeding with debridement: Mild Bleeding Controlled with: Pressure, Compression and gauze Patient tolerated procedure: Patient tolerated procedure well Assessment/Plan Active Problems Ulcer of right foot with fat layer exposed (Chronic) Chronic ulcer of left foot with fat layer exposed (Chronic) Chronic ulcer of right great toe with fat layer exposed (Chronic) Type 2 diabetes mellitus (Chronic) Assessment: 1. Chronic ulcer of right great toe. 2. Chronic ulcer of right heel. 3. Chronic ulcer of left heel. 4. Type 2 diabetes mellitus. Plan: Patient was examined and evaluated again today. A very mild selective debridement was performed as noted in the clinical panel. Once complete, each of the ulcer sites were dressed with Santyl to the base covered with gauze. She has been tolerating these dressing changes well each day. The importance of keeping each of the ulcer sites offloaded at all times was stressed in great detail with the patient today. We discussed proper footwear that will completely offload the site if the patient has to be up and moving. We also discussed the importance of having her heels and toes completely offloaded and floated over the edges of pillows so nothing is touching them but air again today. Vascular studies were done on 10/15/18. The Venous US showed the veins were bilaterally patent and compressible. The left small saphenous vein is patent and incomtence. The arterial study showed Left GONZALO= 123 and left digital brachial = 91. Right SJH=403. Bilaterally triphasic wave forms. 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 Unable to assess arterial flow in right due to the presence of a bandage. Encourage nutritional supplementation with a high protein diet in order to help optimize ulcer healing potential. The patient was educated on all signs and symptoms of local and systemic infection, and she was instructed to go to the emergency room immediately should she notice any of these. All questions were answered to the patient's satisfaction. Follow up in one week. Code Visit [id number]: [id number] Monica subq tissue 20 sq cm/<
== END 2018-10-19 23:59 ==
LOC: WC 15:15
PROVIDERS: Family Provider Preventive Medicine Occupational Medicine; PCP Preventive Medicine Occupational Medicine; Referring Provider Nurse Practitioner Family; Visit Provider Nurse Practitioner Family
DX: E11.621 Type 2 diabetes mellitus with foot ulcer (principal); L97.512 Non-pressure chronic ulcer of other part of right foot with fat layer exposed; L97.422 Non-pressure chronic ulcer of left heel and midfoot with fat layer exposed; L97.412 Non-pressure chronic ulcer of right heel and midfoot with fat layer exposed; E11.51 Type 2 diabetes mellitus with diabetic peripheral angiopathy without gangrene; I83.92 Asymptomatic varicose veins of left lower extremity; M79.671 Pain in right foot; M79.672 Pain in left foot
CPT/HCPCS: 11042; 93923; 93970; 97597; 97598

== ENCOUNTER 2018-10-29 12:49 | Outpatient (RCR) | payer MEDICARE, SELFPAY ==
[2018-10-20 01:02] VITALS: BP 139/77; PULSE 101; RESP 18; TEMP 37.6
== END 2018-11-18 23:59 ==
LOC: WC 12:49
PROVIDERS: Family Provider Preventive Medicine Occupational Medicine; PCP Preventive Medicine Occupational Medicine; Referring Provider Nurse Practitioner Family; Visit Provider Nurse Practitioner Family
DX: Z09 Encounter for follow-up examination after completed treatment for conditions other than malignant neoplasm (principal)

== ENCOUNTER 2019-01-21 10:39 | Outpatient (RCR) | payer MEDICARE, SELFPAY | END 2019-02-18 23:59 | LOC: WC 10:39 | PROVIDERS: Family Provider Preventive Medicine Occupational Medicine; PCP Preventive Medicine Occupational Medicine; Visit Provider Surgery | DX: Z09 Encounter for follow-up examination after completed treatment for conditions other than malignant neoplasm (principal) ==